=== PATIENT | male | born 1985 | race Caucasian/White ===

== ENCOUNTER 2017-03-26 12:27 | Emergency (ER) | payer OTHER ==
[2017-03-26] MEDS ORDERED: RANITIDINE HCL 50 MG in 0.9 % SODIUM CHLORIDE 100ML 50 ML IVPB ONE (13:50)
[2017-03-26] MEDS ORDERED: DIPHENHYDRAMINE HCL IV 50 MG/ML VIAL IVP ONE (13:50)
[2017-03-26] MEDS ORDERED: METHYLPREDNISOLONE PF 125MG/VIAL IVP ONE (13:50)
--- NOTE | 2017-03-26 13:55 | Emergency Department Record ---
History of Present Illness - General Chief complaint: Rash Stated complaint: RASH Time Seen by Provider: 03/26/17 13:49 Source: Patient, Old records reviewed Limitations: No limitations - History of Present Illness Initial comments: 31 yo male presents with an itchy rash that started about 10 days ago. He developed an itchy rash on the abdomen that has spread to various other locations. He was initially treated with a steroid shout and oral steroids. He told them 4 days and then stopped on week ago. The itchy rash has persisted. He has no shortness of breath. No new medications. No throat swelling. No new medications or contacts. No history of anaphylaxis. MD complaint: Rash -: Days(s) (11) Location: Generalized Severity: Moderate Quality: Other (itches) Improves with: None Worsens with: None Context: None Associated symptoms: Denies other symptoms Treatments Prior to Arrival: Benadryl (Monday) - Related Data Previous Rx's Medication Instructions Recorded Hydroxyzine Pamoate [Vistaril] 25 mg PO Q6H PRN #20 capsule 03/26/17 Methylprednisolone [Medrol Dose 4 mg PO DAILY #1 tab.ds.pk 03/26/17 Pack] Allergies Allergy/AdvReac Type Severity Reaction Status Date / Time sulfamethoxazole Allergy Severe HIVES Verified 03/26/17 13:38 [From Bactrim] trimethoprim [From Bactrim] Allergy Severe HIVES Verified 03/26/17 13:38 Review of Systems Constitutional: Denies: Chills, Fever, Malaise, Weakness Eyes: Denies: Eye discharge ENT: Denies: Congestion, Ear pain, Throat pain Respiratory: Denies: Cough, Dyspnea, Hemoptysis, Stridor, Wheezes Cardiovascular: Denies: Chest pain, Palpitations, Syncope Endocrine: Denies: Fatigue Gastrointestinal: Denies: Abdominal pain, Diarrhea, Nausea, Vomiting Genitourinary: Denies: Dysuria, Frequency, Hematuria Musculoskeletal: Denies: Arthralgia, Back pain, Joint swelling, Myalgia Skin: Reports: As per HPI, Change in color, Rash. Denies: Bruising Neurological: Denies: Confusion, Headache Psychiatric: Denies: Anxiety Hematological/Lymphatic: Denies: Blood Clots, Easy bleeding, Easy bruising, Swollen glands Physical Exam - General General Appearance: Alert, Oriented x3, Cooperative, No acute distress Limitations: No limitations - Head Head exam: Normal inspection - Eye Eye exam: Normal appearance, PERRL, Periorbital swelling (mild on the right cheek). negative: Conjunctival injection - ENT ENT exam: Normal exam, Mucous membranes moist Ear exam: Normal external inspection Nasal Exam: Normal inspection Mouth exam: Normal external inspection Teeth exam: Normal inspection Throat exam: Normal inspection - Neck Neck exam: Normal inspection, Full ROM. negative: Tenderness - Respiratory Respiratory exam: Normal lung sounds bilaterally. negative: Respiratory distress - Cardiovascular Cardiovascular Exam: Regular rate, Normal rhythm, Normal heart sounds - GI/Abdominal GI/Abdominal exam: Soft, Other (hives on the abdomen). negative: Tenderness - Rectal Rectal exam: Deferred - exam: Deferred - Extremities Extremities exam: Normal capillary refill. negative: Normal inspection (rash, hives on the abdomen, back, arms and legs), Pedal edema - Back Back exam: Denies: Normal inspection - Neurological Neurological exam: Alert, Normal gait, Oriented X3, Reflexes normal - Psychiatric Psychiatric exam: Normal affect, Normal mood - Skin Skin exam: Rash, Urticaria Course - Reevaluation(s) Reevaluation #1: The patient has hives on presentation He has been off his steroid for one week after a 4 day course I discussed restarting steroids and referral to an senior production supervisor 03/26/17 13:54 Reevaluation #2: The hives are much improved We discussed home care and reasons to return He is to call his PCP tomorrow with recommendation for referral to an senior production supervisor 03/26/17 15:24 Disposition Disposition: Discharge Clinical Impression: Hives Disposition: Home, Self-Care Condition: (1) Good Instructions: Urticaria (ED) Additional Instructions: Call your doctor tomorrow for close follow up to discuss you recent prolonged hives Return if you have shortness of breath, worse hives, throat swelling or any concerns I recommend a follow up with an senior production supervisor to help you find out your allergies Prescriptions: Hydroxyzine Pamoate [Vistaril] 25 mg PO Q6H PRN #20 capsule PRN Reason: Itch/Hives Methylprednisolone [Medrol Dose Pack] 4 mg PO DAILY #1 tab.ds.pk Forms: Patient Portal Access Time of Disposition: 15:27 Quality - Quality Measures Quality Measures: N/A - Blood Pressure Screening View Details: Yes Blood Pressure Classification: Pre-Hypertensive BP Reading Systolic Measurement: 130 Diastolic Measurement: 74 Screening for High Blood Pressure: < Pre-Hypertensive BP, F/U Documented > [ G8950] Pre-Hypertensive Follow-up Interventions: Referral to alternative/primary care provider.
== END 2017-03-26 15:37 | disposition home or self-care (01) ==
LOC: ER 12:27
DX: L50.9 Urticaria, unspecified (principal)
CPT/HCPCS: 96365; 96375; 99284; J1200; J2780; J2930

== ENCOUNTER 2017-05-07 00:46 | Emergency (ER) | payer OTHER ==
[2017-05-07] MEDS ORDERED: HYDROCODONE/APAP 7.5/325MG TABLET PO ONE (00:57)
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
== END 2017-05-07 01:46 | disposition home or self-care (01) ==
LOC: ER 00:46
DX: S43.101A Unspecified dislocation of right acromioclavicular joint, initial encounter (principal); V86.59XA Driver of other special all-terrain or other off-road motor vehicle injured in nontraffic accident, initial encounter
CPT/HCPCS: 99283